=== PATIENT | female | born 1955 | race Caucasian/White ===

== ENCOUNTER 2017-01-30 11:02 | Outpatient (CLI) | payer OTHER ==
[2017-01-30 11:43] LABS: BASOPHILS # (AUTO) 0.1 K/uL (0-0.2); BASOPHILS % (AUTO) 0.9 % (0.0-3.0); EOSINOPHILS # (AUTO) 0.2 K/ul (0.0-0.7); EOSINOPHILS % (AUTO) 2.6 % (0.0-7.0); HEMATOCRIT 44.9 % (37.0-47.0); HEMOGLOBIN 14.3 g/dl (12.0-16.0); IMMATURE GRANULOCYTE % (AUTO) 0.3 % (0.0-5.0); LYMPHOCYTES # (AUTO) 2.1 K/uL (0.60-3.4); LYMPHOCYTES % (AUTO) 29.7 (10.0-50.0); MEAN CORPUSCULAR HGB CONC 31.8 (31.8-35.4); MEAN CORPUSCULAR VOLUME 84.7 fl (81.0-99.0); MONOCYTES # (AUTO) 0.4 K/uL (0.4-2.0); MONOCYTES % (AUTO) 5.8 (0-10); NEUTROPHILS # (AUTO) 4.2 K/ul (2.0-6.9); NEUTROPHILS % (AUTO) 60.7; PLATELET COUNT 291 10^3/uL (140-440); WHITE BLOOD COUNT 6.93 K/ul (4.6-10.2)
[2017-01-30 12:22] LABS: ALBUMIN 4.2 g/dL (3.4-5.0); ALBUMIN/GLOBULIN RATIO 1.2; ANION GAP 11.6; BILIRUBIN,TOTAL 0.49 mg/dL (0.00-1.20); BUN/CREATININE RATIO 22.34; CALCIUM 9.6 mg/dL (8.2-10.2); CREATININE 0.94 mg/dL (0.60-1.30); POTASSIUM 4.6 mmol/L (3.5-5.10); TOTAL PROTEIN 7.7 g/dL (5.8-8.1)
[2017-02-04 17:21] LABS: IGG P18 AB Absent (.); IGG P23 AB Absent (.); IGG P28 AB Absent (.); IGG P30 AB Absent (.); IGG P39 AB Absent (.); IGG P41 AB Present (.); IGG P45 AB Absent (.); IGG P58 AB Absent (.); IGG P66 AB Absent (.); IGG P93 AB Absent (.); IGM P39 AB Absent (.); IGM P41 AB Present (.)
[2017-02-05 07:39] LABS: LYME IGG WB INTERP Negative (.); LYME IGM WB INTERP Positive (.)
== END 2017-01-30 11:03 | disposition home or self-care (01) ==
LOC: LAB 11:02
PROVIDERS: ATTEND Internal Medicine
DX: R53.83 Other fatigue (principal); R52 Pain, unspecified; Z82.49 Family history of ischemic heart disease and other diseases of the circulatory system
CPT/HCPCS: 36415; 80053; 80061; 82607; 83036; 84439; 84443; 85025; 86617; 86757; 87798

== ENCOUNTER 2017-02-25 06:20 | Outpatient (CLI) ==
--- NOTE | 2017-02-26 09:28 | ECHO2D ---
Date of Exam: 02/25/17 Ordering Physician: ZARI GARSIA Reason for Echo: CHEST PAIN, PALPITATIONS M-Mode Normal Adult Results LV Dimensions Normal Adult Results AoV Opening excursions >1.6 >1.6 LVEDD-base- 3.5-5.8 3.5 Ao root dimensions 2.0-3.7 4.1 LVESD-base- 3.1-4.6 L. Atrium dimensions 1.9-3.8 3.0 Post. Wall thickness 0.8-1.1 0.9 IV septum (thickness) 0.7-1.2 0.9 Post. Wall excursion 0.72-1.3 NORMAL Septal motion NORMAL Systolic motion R. Ventricular cavity 1.5-2.0 NORMAL LVEF 60% 70% Paradoxical septal wall motion NORMAL 2-D :DILATED AORTIC ROOT/MITRAL VALVE PROLAPSE NOTED WITH LEFT PARASTERNAL LONG AXIS AND APICAL FOUR CHAMBER VIEW, NO EFFUSION, NO THROMBUS, NORMAL LEFT VENTRICLE AND LEFT ATRIAL SIZE M-MODE: MV: MITRAL VALVE PROLAPSE, LATE SYSTOLIC AV: NORMAL TV: NORMAL PV: CHAMBER SIZE: DILATED AORTIC ROOT WALL MOTION: NORMAL PERICARDIUM: NORMAL INTERPRETATION: 1. MILDLY DILATED AORTIC ROOT 2. 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 NORMAL LEFT VENTRICULAR CONTRACTILITY 4. NORMAL LEFT VENTRICLE SIZE MTDD
== END 2017-02-25 06:21 | disposition home or self-care (01) ==
LOC: CAR 06:20
PROVIDERS: ATTEND Internal Medicine
DX: R07.9 Chest pain, unspecified (principal); R00.2 Palpitations

== ENCOUNTER 2017-02-27 06:04 | Outpatient (CLI) ==
--- NOTE | 2017-02-27 09:57 | ECHOSTRESS ---
Date of Exam: 02/27/17 Ordering Physician: ZARI GARSIA Reason for Echo: CHEST PAIN, PALPITATIONS, STRESS TEST--NO ISCHEMIA M-Mode Normal Adult Results LV Dimensions Normal Adult Results AoV Opening excursions >1.6 LVEDD-base- 3.5-5.8 Ao root dimensions 2.0-3.7 LVESD-base- 3.1-4.6 L. Atrium dimensions 1.9-3.8 Post. Wall thickness 0.8-1.1 IV septum (thickness) 0.7-1.2 Post. Wall excursion 0.72-1.3 Septal motion Systolic motion R. Ventricular cavity 1.5-2.0 LVEF 60% Paradoxical septal wall motion 2-D: NORMAL LEFT VENTRICULAR CONTRACTILITY--RESTING AND POST EXERCISE M-MODE: MV: AV: TV: PV: CHAMBER SIZE: WALL MOTION: NORMAL LEFT VENTRICULAR CONTRACTILITY--RESTING AND POST EXERCISE PERICARDIUM: INTERPRETATION: 1. NORMAL LEFT VENTRICULAR CONTRACTILITY--RESTING AND POST EXERCISE MTDD
--- NOTE | 2017-02-27 10:03 | STRESSECHO ---
Date of Test: 02/27/17 Reason for Exam: CHEST PAIN, PALPITATIONS Ordering Physician: ZARI GARSIA Current Medications: SINGULAIR Physical Findings: S1, S2, NO S3 Resting EKG: SINUS RHYTHM/NO ACUTE CHANGES Target Heart Rate: 158/134 STAGE MPH/GRADE HEART RATE BPM BLOOD PRESSURE mmhg RHYTHM S-T SEGMENT +/- UP DOWN SYMPTOMS,COMMENTS At Rest 73 140/82 SR X NONE 1 1.7/10% 100 142/78 SR X NONE 2 2.5/12% 121 150/80 SR X NONE 3 3.4/14% 4 4.2/16% 5 5.0/18% Immediately after 151 SR X FATIGUE Durations of Exercise: 7:07 Maximum Heart Rate Reached: 151 Reason for Termination: FATIGUE 3 MINUTES POST EXERCISE: HR 80 BPM, BP 160/70 BPM, SR, +/- INTERPRETATION: 98% OXYGEN SATURATION WITH EXERCISE ON ROOM AIR METS 10.0 1. NO EVIDENCE OF ISCHEMIA BY ST-T WAVE 2 NO CHEST PAIN OR DISCOMFORT 3. BLOOD PRESSURE RESPONSE NORMAL 4. NO ARRHYTHMIAS NORMAL LEFT VENTRICULAR CONTRACTILITY--RESTING AND POST EXERCISE MTDD
== END 2017-02-27 06:05 | disposition home or self-care (01) ==
LOC: CAR 06:04
PROVIDERS: ATTEND Internal Medicine
DX: R07.9 Chest pain, unspecified (principal); R00.2 Palpitations

== ENCOUNTER 2018-02-13 11:00 | Outpatient (RCR) ==
--- NOTE | 2018-02-12 11:43 | RS.OPPTEV2 ---
Date of Note: 02/11/18 Visit #: 1 Date of Evaluation: 02/11/18 Payer Source: Insurance Date of Onset/Injury/Change in Status: 12/29/17 Surgery Performed?: No Treatment Diagnosis: pain in R knee History of Condition/Mechanism of Injury:: pt reports she fell down her basement steps on 12/29/17. 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 She states she is also having pain and feelings of instability in L knee as well as R. Treatment Side (optional): Right *Precautions: no restrictions per Kary with Dr. 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 Smoking Status: Never smoker Diagnostic Testing/Imaging:: MRI on 01/05/18: acute nondisplaced fx fibular head , nondisplaced fx of tibial plateau, chronic and degenerative complex tear through ant horn of lateral meniscus. Hx Home Medications: toprol XL, tramadol, medrol dose pack, multivitamin, vitamin D3, [place], [place] 3 Patient's Goals: decrease pain and increased stability in knee to be able to return to work Pain Assessment - Pain Description Pain Location: R knee, and L knee Pain Description: Aching Current Pain Intensity: 0 at rest, aches with weight bearing and when lying supine after being up. Worst Pain Intensity: 8-10 Functional Outcome Measure LE Functional Scale: 40 (50% disability) - G Codes & Severity Modifier G Codes & Modifier: n/a Source of G Code score: n/a Observation - Observation Posture: Forward Head, Rounded Shoulders, Increased Thoracic Kyphosis, Decreased Lumbar Lordosis Handedness: Right Girth Measurement Lower: R knee 40 cm. L knee 38 cm Gait - Gait Pattern General Gait Pattern Observation: Antalgic Gait Gait Comments: pt amb with antalgic gait with decreased knee flex on R, with decreased heel strike/toe off on RLE. General Range of Motion: BUE WFL's. BLE hip flex WFL's, ankle DF/PF WFL's Muscle Strength: BUE 5/5. RLE hip flex 4-/5, ankle DF/PF 4+/5. LLE hip flex 4+ /5, ankle DF/PF 5/5 - Left Knee ROM Left Knee Extension: -6 Left Knee Flexion: 117 (AROM with pain) Knee ROM Limitations: Soft Tissue Tightness, Muscle Weakness, Pain - Right Knee ROM Right Knee Extension: -3 Right Knee Flexion: 110 (AROM with pain) Knee ROM Limitations: Soft Tissue Tightness, Muscle Weakness, Pain - Left Knee Strength Left Knee Extension: 3 Fair Left Knee Flexion: 4- Good- - Right Knee Strength Right Knee Extension: 3+ Fair+ Right Knee Flexion: 3 Fair - Special Tests Knee Anterior Drawer Test: Negative Left, Negative Right Knee Posterior Drawer Test: Negative Left, Negative Right Knee Valgus Stress Test: Negative Left, Positive Right Knee Varus Stress Test: Negative Right, Positive Left Patella Apprehension Test: Negative Left, Negative Right Patella J-sign: Negative Left, Negative Right Palpation Palpation Findings: Tenderness, Muscle Guarding Comments:: tenderness noted in R knee at medial joint line with joint effusion noted Sensation - Sensation Right Upper Extremity: Intact/Normal Left Upper Extremity: Intact/Normal Right Lower Extremity: Impaired Left Lower Extremity: Impaired Comments: pt with n/t B feet due to previous issues. Balance - Sitting Balance Static Sitting Balance: Normal Dynamic Sitting Balance: Normal - Standing Balance Static Standing Balance: Good Dynamic Standing Balance: Fair - Comments Balance Assessment Comments: pt with decreased dyn stand balance due to decreased strength, and pain in R knee. Interventions - Exercise/Activities/Manual Therapy Exercises/Activities: pt performed BLE QS, QS with pillow squeeze, SAQ, SLR, LAQ x 5 reps with verbal cues for technique Manual Therapy: n/a HOME EXERCISE PROGRAM: pt given written HEP including: QS, QS with pillow squeeze, SAQ, SLR, LAQ - Charges Timed Code Treatment Minutes: 53 Total Treatment Time: 61 Procedures billed for this date of service:: eval med, ex EVALUATION COMPLEXITY LEVEL EVALUATION COMPLEXITY LEVEL: HISTORY: Medium (OA, RA, HTN), EXAM OF BODY SYSTEMS : Medium (ROM, strength, pain, balance, gait), CLINICAL PRESENTATION: Medium ( evolving), CLINICAL DECISION MAKING: Medium Assessment Assessment: pt presents with decreased strength, gait sequencing, balance, as well as pain in R knee as well as L knee. Feel pt would benefit from skilled PT for therex for LE strengthening, ROM as well as gait training to improve functional mobility Patient Education: Home Exercise Program, Education of Plan of Care Rehab Potential: Good Short Term Goals Goal #1: pt amb in dept without AD with improved heel strike/toe off gait pattern. Goal to be met by: 03/04/18 Goal #2: pt with improved ROM R knee ext 0, flex 112 Goal to be met by: 03/04/18 Goal #3: pt independent with initial HEP Goal to be met by: 03/04/18 Goal #4: Decreased R knee edema to equal to Lknee Goal to be met by: 03/04/18 Halfway Goals Goal #1: pt amb community distances with decreased pain and improved sequencing Goal to be met by: 03/25/18 Goal #2: pt with no reports of feeling instability in knee when amb Goal to be met by: 03/25/18 Goal #3: pt report ability to perform household tasks with less pain Goal to be met by: 03/25/18 Goal #4: pt independent with HEP to maintain gains after DC Goal to be met by: 03/25/18 Plan - Treatment to be Provided Procedures: Therapeutic Exercises, Therapeutic Activity, Gait Training, Manual Therapy, Patient Education Modalities: Electrical Stimulation, Cryotherapy, Hot Packs - Treatment Plan Frequency: 2-3 x week Duration: 6 weeks ORDER # VISITS AND/OR THROUGH DATE: 03/25/18 - Treatment Code (1) Right knee pain Code(s): M25.561 - PAIN IN RIGHT KNEE Qualifiers: Chronicity: chronic Qualified Code(s): M25.561 - Pain in right knee; G89.29 - Other chronic pain (2) Joint effusion of knee Qualifiers: Laterality: right Qualified Code(s): M25.461 - Effusion, right knee (3) Muscle weakness Code(s): M62.81 - MUSCLE WEAKNESS (GENERALIZED) (4) Difficulty walking Code(s): R26.2 - DIFFICULTY IN WALKING, NOT ELSEWHERE CLASSIFIED
--- NOTE | 2018-02-12 11:45 | RS.CSNOTE ---
PT Case Note Date of Note: 02/11/18 Title of document: Phone call from Note: Received call from Kary with Dr. Grant and she reports pt has no weight bearing or any exercise restrictions at this time.
--- NOTE | 2018-02-13 15:51 | RS.OPPTDN ---
Subjective Date of Note: 02/13/18 Visit #: 2 Date of Evaluation: 02/11/18 Payer Source: Insurance Treatment Diagnosis: pain in R knee Current Subjective/complaints:: Patient reports discomfort with ambulation and with end range flexion with bilateral knees. Reports right knee feels swollen and is painful along the medial joint. Left knee also bothers her with discomfort at one point at the medial joint line. *Precautions: no restrictions per Kary with Dr. Grant Pain Assessment - Pain Description Pain Location: Both knees with right worse than left Current Pain Intensity: mod - Treatment Modality: Electrical Stim Unattended Parameters/Method Applied: [id number] HVGC to 135p.v. with 4 large pads cross current to the right knee joint with CP following EX. Patient Position: Supine - Heat/Cryotherapy Treatment: Cryotherapy (with Estim ) Interventions - Exercise/Activities/Manual Therapy Exercises/Activities: Bilateral QS, SAQ, SLR, and HS. All 2s/10reps. Yellow theraband for ankle df, ham curl, bilaterally 3s/10reps. Isometric hip add and ankle inversion with ball, multiple reps. Passive knee flexion and hamstring stretching. Reviewed HEP and safety precautions. Total minutes of Exercise: 28mins Manual Therapy: n/a HOME EXERCISE PROGRAM: pt given written HEP including: QS, QS with pillow squeeze, SAQ, SLR, LAQ. Yellow theraband for resistive ankle df. Isometric ankle df. - Charges Timed Code Treatment Minutes: 28mins Total Treatment Time: 50mins Procedures billed for this date of service:: EX2, CP, Estim unattended Assessment: Patient tolerates progression of exercise. Will assess response to modalities next session. She will need to continue ice to reduce swelling. Patient Education: Education of diagnosis, Body/Joint mechanics, Home Exercise Program, Home Safety Patient demonstrates compliance with HEP?: Yes Short Term Goals Goal #1: pt amb in dept without AD with improved heel strike/toe off gait pattern. Goal to be met by: 03/04/18 Goal #2: pt with improved ROM R knee ext 0, flex 112 Goal to be met by: 03/04/18 Progress towards Goal:: Progressing Goal #3: pt independent with initial HEP Goal to be met by: 03/04/18 Progress towards Goal:: Progressing Goal #4: Decreased R knee edema to equal to Lknee Goal to be met by: 03/04/18 Pipe Tester Goals Goal #1: pt amb community distances with decreased pain and improved sequencing Goal to be met by: 03/25/18 Goal #2: pt with no reports of feeling instability in knee when amb Goal to be met by: 03/25/18 Goal #3: pt report ability to perform household tasks with less pain Goal to be met by: 03/25/18 Goal #4: pt independent with HEP to maintain gains after DC Goal to be met by: 03/25/18 Plan PLAN OF CARE EXPIRES ON:: 03/25/18 ORDER # VISITS AND/OR THROUGH DATE: 03/25/18 PLAN: Continue modalities to reduce pain and swelling of the right knee joint, and therex to increase strength and stability of bilateral LE's.
== END 2018-02-14 23:59 ==
PROVIDERS: ATTEND Orthopaedic Surgery
DX: M25.561 Pain in right knee (principal); M25.461 Effusion, right knee; M62.81 Muscle weakness (generalized); R26.2 Difficulty in walking, not elsewhere classified

== ENCOUNTER 2018-02-20 17:24 | Emergency (ER) | payer OTHER ==
[2018-02-20 17:33] VITALS: BP 146/85; TEMP 97.7; BMI 22.3
[2018-02-20] MEDS ORDERED: ZESTRIL PO STA (17:47)
[2018-02-20] MEDS ORDERED: ZOFRAN 4 MG/2 ML IM STA ×2 (18:09→18:16)
[2018-02-20] MEDS ORDERED: MORPHINE 2 MG/ML SYRINGE IM STA (18:10)
--- NOTE | 2018-02-20 18:13 | ED.PDOC ---
General ED Provider: Dr. 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) Nursing and Triage Documentation Reviewed and Agree: Yes (NURSING STAFF PRESENT AT ALL TIMES ) Does patient meet sepsis criteria?: Yes (HX/O LYMES DISEASE ) If yes, has appropriate treatment been initiated?: No System Inflammatory Response Syndrome: Not Applicable Sepsis Protocol: For patient's 13 years and over: Temp is 96.8 and below OR 101 and greater Pulse >90 BPM Resp >20/minute Acutely Altered Mental Status Are patient's symptoms suggestive of a new infection, such as: -Pneumonia -Skin, Soft Tissue -Endocarditis -UTI -Bone, Joint Infection -Implantable Device -Acute Abdominal Infection -Wound Infection -Meningitis -Blood Stream Catheter Infection -Unknown Cardiovascular Complaint Exam - Chest Pain Complaint/Exam Duration: TODAY HAS HAD HIGH BLOOD PRESSUE AND HEAD ACHE Symptoms Are: Still present Timing: Constant Length of Chest Pain Episodes: NO CHEST PAIN Associated Signs and Symptoms: Reports: Nausea. Denies: Diaphoresis, Vomiting, Fever, Palpitations, Cough, Hemoptysis, Back pain, Abdominal pain, Dizziness, Short of air, Calf pain, Calf swelling Related History: Reports: Similar episode, Other (ON METOPROLOL) Related Surgical History: Reports: None History of Healthcare-Acquired Pneumonia: Reports: No AMI/ACS Risk Factors: Reports: Hypertension TAD Risk Factors: Reports: Hypertension Pulmonary Embolism Risk Factors: Reports: None Prior Care for this Complaint: Yes (HYPERTENSION) Recent Stress Test: No Recent Echo/LV Function: No JVD Present: No Subcutaneous Emphysema Present: No Diminshed Breath Sounds: No Reproducible Chest Wall Pain: No Bilateral Pulses Present: Yes If Risk Factors for AMI/ACS Consider: EKG, Cardiac Enzymes Care and Dx Studies Discussed With: Family Phlebotomist Consulted: No Differential Diagnoses: Other (HYPERTENSION) Quality Indicators For Acute [place] or Cardiac Chest Pain: EKG in 10min. Review of Systems - Review Of Systems Constitutional: Reports: Malaise Eyes: Reports: No symptoms Ears, Nose, Mouth, Throat: Reports: No symptoms Respiratory: Reports: No symptoms Cardiac: Reports: No symptoms GI: Reports: Nausea : Reports: No symptoms Musculoskeletal: Reports: No symptoms Skin: Reports: No symptoms Neurological: Reports: Headache Endocrine: Reports: No symptoms Hematologic/Lymphatic: Reports: No symptoms All Other Systems: Reviewed and Negative Past Medical History - Past Medical History Previously Healthy: Yes Endocrine: Reports: None Cardiovascular: Reports: Hypertension, Other (AORTIC ANEURYSM) Respiratory: Reports: None Hematological: Reports: None Gastrointestinal: Reports: None Genitourinary: Reports: None Neuro/Psych: Reports: None Musculoskeletal: Reports: None Cancer: Reports: None Last Menstrual Period: unknown - Surgical History General Surgical History: Reports: None - Family History Family History: Reports: None - Social History Smoking Status: Never smoker Hx Substance Use: No Alcohol Screening: None Physical Exam - Physical Exam Appearance: Ill-appearing Ill-appearing: Moderate Pain Distress: Moderate Eyes: CATHI, EOMI, Conjunctiva clear ENT: Ears normal, Nose normal, Oropharynx normal Respiratory: Airway patent, Breath sounds clear, Breath sounds equal, Respirations nonlabored Cardiovascular: RRR, Pulses normal, No rub, No murmur GI/: Soft, Nontender, No masses, Bowel sounds normal, No Organomegaly Musculoskeletal: Normal strength, ROM intact, No edema, No calf tenderness Skin: Warm, Dry, Normal color Neurological: Sensation intact, Motor intact, Reflexes intact, Cranial nerves intact, Alert, Oriented Psychiatric: Affect appropriate, Mood appropriate Interpretation - [employer] Rate: Normal Rhythm: Sinus - EKG Interpretation Rate: Normal Rhythm: Sinus Ectopy: None [place]: NL ST Segment: Normal Re-Evaluation - Re-Evaluation Time of Re-Evaluation: 18:46 Physician Notification - Case Discussed Physician Notified: [email or web address] Time of Notification: 19:00 Critical Care Note - Critical Care Note Total Time (mins): 0 Course - Course Hematology/Chemistry: 02/20/18 17:54 02/20/18 17:54 Orders, Labs, Meds: Lab Review 02/20/18 02/20/18 02/20/18 17:54 17:54 17:54 WBC 10.41 H RBC 5.16 Hgb 14.2 Hct 43.6 MCV 84.5 MCH 27.5 MCHC 32.6 RDW Coeff of Maura 13.4 Plt Count 253 Immature Gran % (Auto) 0.2 Neut % (Auto) 76.1 Lymph % (Auto) 17.3 [place] % (Auto) 5.1 Eos % (Auto) 0.8 Baso % (Auto) 0.5 Immature Gran # (Auto) 0.0 Neut # (Auto) 7.9 H Lymph # (Auto) 1.8 [place] # (Auto) 0.5 Eos # (Auto) 0.1 Baso # (Auto) 0.1 ESR Sodium 138 Potassium 4.4 Chloride 105 Carbon Dioxide 22 L Anion Gap 15.4 BUN 25 H Creatinine 0.83 Estimated GFR (MDRD) 69.00 BUN/Creatinine Ratio 30.12 Glucose 108 Calcium 9.6 Total Bilirubin 0.7 AST 17 ALT 16 Alkaline Phosphatase 67 Total Creatine Kinase Troponin I Total Protein 7.0 Albumin 3.7 Globulin 3.3 Albumin/Globulin Ratio 1.12 E.chaffeensis DNA (PCR) Negative Spotted Fever Grp IgM Rickettsia IgG Ab Rickettsia IgG Ab IFA 02/20/18 02/20/18 02/20/18 17:54 17:54 17:54 WBC RBC Hgb Hct MCV MCH MCHC RDW Coeff of Maura Plt Count Immature Gran % (Auto) Neut % (Auto) Lymph % (Auto) [place] % (Auto) Eos % (Auto) Baso % (Auto) Immature Gran # (Auto) Neut # (Auto) Lymph # (Auto) [place] # (Auto) Eos # (Auto) Baso # (Auto) ESR Sodium Potassium Chloride Carbon Dioxide Anion Gap BUN Creatinine Estimated GFR (MDRD) BUN/Creatinine Ratio Glucose Calcium Total Bilirubin AST ALT Alkaline Phosphatase Total Creatine Kinase Troponin I 0.0150 Total Protein Albumin Globulin Albumin/Globulin Ratio E.chaffeensis DNA (PCR) Spotted Fever Grp IgM 1.06 H Rickettsia IgG Ab Negative Rickettsia IgG Ab IFA Not Reportable 02/20/18 02/20/18 17:54 18:30 WBC RBC Hgb Hct MCV MCH MCHC RDW Coeff of Maura Plt Count Immature Gran % (Auto) Neut % (Auto) Lymph % (Auto) [place] % (Auto) Eos % (Auto) Baso % (Auto) Immature Gran # (Auto) Neut # (Auto) Lymph # (Auto) [place] # (Auto) Eos # (Auto) Baso # (Auto) ESR 28 H Sodium Potassium Chloride Carbon Dioxide Anion Gap BUN Creatinine Estimated GFR (MDRD) BUN/Creatinine Ratio Glucose Calcium Total Bilirubin AST ALT Alkaline Phosphatase Total Creatine Kinase 35 Troponin I Total Protein Albumin Globulin Albumin/Globulin Ratio E.chaffeensis DNA (PCR) Spotted Fever Grp IgM Rickettsia IgG Ab Rickettsia IgG Ab IFA Orders Category Date Time Status EKG-(ED ONLY) Stat CARDIO 02/20/18 17:46 Completed CBC W/ AUTO DIFF Stat LAB 02/20/18 17:54 Completed COMPREHENSIVE METABOLIC PANEL Stat LAB 02/20/18 17:54 Completed CREATINE KINASE Stat LAB 02/20/18 17:54 Completed EHRLICHIA DNA, PCR Stat LAB 02/20/18 17:54 Completed ESR Stat LAB 02/20/18 18:30 Completed [facility] SPOTTED FEVER,IgG Routine LAB 02/20/18 17:54 Completed [facility] SPOTTED FEVER,IgM Routine LAB 02/20/18 17:54 Completed TROPONIN I Stat LAB 02/20/18 17:54 Completed Lisinopril [Zestril] MEDS 02/20/18 17:47 Discontinued 5 mg PO ONCE STA Meperidine HCl/Pf [Demerol 100 mg/ml Syringe] MEDS 02/20/18 18:50 Discontinued 50 mg IM ONCE STA Meperidine HCl/Pf [Demerol 50 mg/ml Vial] MEDS 02/20/18 18:59 Discontinued 50 mg .ROUTE .STK-MED ONE Morphine Sulfate [Morphine 2 mg/ml Syringe] MEDS 02/20/18 18:10 Discontinued 4 mg IM ONCE STA Ondansetron HCl/Pf [Zofran 4 mg/2 ml] MEDS 02/20/18 18:16 Discontinued 8 mg IM ONCE STA CT HEAD W/O CONTRAST Stat RADS 02/20/18 18:19 Completed Medications Discontinued Medications Generic Name Dose Route Start Last Admin Trade Name Marii PRN Reason Stop Dose Admin Lisinopril 5 mg 02/20/18 17:47 02/20/18 19:29 Zestril PO 02/20/18 17:48 Not Given ONCE STA Meperidine HCl 50 mg 02/20/18 18:50 02/20/18 19:09 Demerol 100 Mg/Ml Syringe IM 02/20/18 18:51 Not Given ONCE STA Morphine Sulfate 4 mg 02/20/18 18:10 02/20/18 18:38 Morphine 2 Mg/Ml Syringe IM 02/20/18 18:11 Not Given ONCE STA Ondansetron HCl 8 mg 02/20/18 18:16 02/20/18 18:27 Zofran 4 Mg/2 Ml IM 02/20/18 18:17 8 mg ONCE STA Administration Vital Signs: Temp Pulse Resp BP Pulse Ox 02/20/18 17:25 97.7 F 85 20 146/85 H 99 YG Risk Score YG Risk Score: Risk Score Odds of by 30D 0 0.1 (0.1-0.2) 1 0.3 (0.2-0.3) 2 0.4 (0.3-0.5) 3 0.7 (0.6-0.9) 4 1.2 (1.0-1.5) 5 2.2 (1.9-2.6) 6 3.0 (2.5-3.6) 7 4.8 (3.8-6.1) Departure - Departure Time of Disposition: 19:00 Disposition: HOME SELF-CARE Discharge Problem: Hypertension Qualifiers: Hypertension type: unspecified Qualified Code(s): I10 - Essential (primary) hypertension Headache Qualifiers: Headache type: unspecified Headache chronicity pattern: acute headache Instructions: Acute Headache (ED) Condition: Good Pt referred to PMD for follow-up: Yes IPMP verified?: No Additional Instructions: Please call your Family Physician as soon as possible to schedule a follow-up appointment. Allergies/Adverse Reactions: Allergies Cephalosporins Adverse Reaction (Verified 02/20/18 17:34) morphine Adverse Reaction (Verified 02/20/18 18:21) Sulfa (Sulfonamide Antibiotics) Adverse Reaction (Verified 02/20/18 17:34) Home Medications: Ambulatory Orders Metoprolol Succinate [Toprol Xl] 12.5 mg PO DAILY 02/20/18 Montelukast Sodium [Singulair] 10 mg PO DAILY 02/20/18 Sumatriptan Succinate [Imitrex] 25 mg PO DIRECTED PRN 02/20/18 Tramadol HCl [Ultram] 50 mg PO Q6HR PRN 02/20/18 Disposition Discussed With: Patient, Family
[2018-02-20] MEDS ORDERED: DEMEROL 50 MG/ML VIAL ONE (18:59)
--- NOTE | 2018-02-20 19:01 | CT ---
EXAM: CT BRAIN HISTORY: Head pain TECHNIQUE: CT brain without intravenous contrast. 5-mm axial sections with Reformations. COMPARISON: None FINDINGS: Brain is unremarkable without evidence of hemorrhage or large vessel distribution recent ischemic in farction. There is no suggestion of acute hydrocephalus or subdural fluid collection. No mass or ma ss effect. Cranium is within normal limits. Mastoid processes are aerated. The visualized paranasal sinuses a re clear. IMPRESSION: No acute intracranial process.
[2018-02-20] MEDS: DEMEROL 100 MG/ML SYRINGE IM STA ×2 (19:02→19:09)
== END 2018-02-20 20:30 | disposition home or self-care (01) ==
LOC: ED 17:24
DX: I10 Essential (primary) hypertension (principal); R51 Headache; Z79.899 Other long term (current) drug therapy
CPT/HCPCS: 36415; 80053; 82550; 84484; 85025; 85651; 86757; 87798; 93005; 93010; 96372; 99283

== ENCOUNTER 2018-02-26 09:00 | Outpatient (RCR) ==
--- NOTE | 2018-02-17 11:49 | RS.OPPTDN ---
Subjective Date of Note: 02/17/18 Visit #: 3 Date of Evaluation: 02/11/18 Payer Source: Insurance Treatment Diagnosis: pain in R knee Current Subjective/complaints:: Patient reports left knee pain is bothering her more than the right today. States reports what feels like an upward movement of the medial tibia when going down a step. *Precautions: no restrictions per Kary with Dr. Grant Pain Assessment - Pain Description Pain Location: Right knee and left knee Current Pain Intensity: right knee 1/10 and left knee 3/10 today - Treatment Modality: Electrical Stim Unattended Parameters/Method Applied: [id number] HVGC to 110p.v. with 4 large pads to the right knee joint with cold pack following exercise. Patient Position: Supine - Heat/Cryotherapy Treatment: Cryotherapy ([id number] to the right knee with Estim and to the left knee following EX. Patient in supine. ) Interventions - Exercise/Activities/Manual Therapy Exercises/Activities: Sitting LAQ. Bilateral QS, SLR, and HS, 4s/5reps. Increased to red theraband for ankle df, hip add, and hip abd, bilaterally 3s/ 10reps. Isometric hip add and ankle inversion with ball, multiple reps. Passive knee flexion and hamstring stretching. Reviewed HEP and safety precautions. Total minutes of Exercise: 25mins Manual Therapy: n/a HOME EXERCISE PROGRAM: pt given written HEP including: QS, QS with pillow squeeze, SAQ, SLR, LAQ. Yellow theraband for resistive ankle df. Isometric ankle df. - Charges Timed Code Treatment Minutes: 25mins Total Treatment Time: 50mins Procedures billed for this date of service:: EX2, CP, Estim unattended Assessment: Patient progressing with exercise. Patient Education: Education of diagnosis, Body/Joint mechanics, Home Exercise Program, Home Safety, Activity Modification Comments: Patient education of joint mechancis and safety. Patient demonstrates compliance with HEP?: Yes Short Term Goals Goal #1: pt amb in dept without AD with improved heel strike/toe off gait pattern. Goal to be met by: 03/04/18 Progress towards Goal:: Progressing Goal #2: pt with improved ROM R knee ext 0, flex 112 Goal to be met by: 03/04/18 Progress towards Goal:: Progressing Goal #3: pt independent with initial HEP Goal to be met by: 03/04/18 Progress towards Goal:: Met Goal #4: Decreased R knee edema to equal to Lknee Goal to be met by: 03/04/18 Progress towards Goal:: Progressing Snf Goals Goal #1: pt amb community distances with decreased pain and improved sequencing Goal to be met by: 03/25/18 Goal #2: pt with no reports of feeling instability in knee when amb Goal to be met by: 03/25/18 Goal #3: pt report ability to perform household tasks with less pain Goal to be met by: 03/25/18 Goal #4: pt independent with HEP to maintain gains after DC Goal to be met by: 03/25/18 Plan PLAN OF CARE EXPIRES ON:: 03/25/18 ORDER # VISITS AND/OR THROUGH DATE: 03/25/18 PLAN: Continue modalities and progressive exericse to reduce pain and increase strength and stability to reutrn patient to PLOF.
--- NOTE | 2018-02-19 11:03 | RS.OPPTDN ---
Subjective Date of Note: 02/19/18 Visit #: 4 Date of Evaluation: 02/11/18 Payer Source: Insurance Treatment Diagnosis: pain in R knee Current Subjective/complaints:: Patient reports treatment seems to have helped reduce some knee pain. She does report a flair-up of swelling and joint discomfort right knee with increased walking day before yesterday. States she realizes she will have to limit her activity level. *Precautions: no restrictions per Kary with Dr. Grant Pain Assessment - Pain Description Pain Location: Bilateral knees, right greater than left. Current Pain Intensity: mild - Treatment Modality: Electrical Stim Unattended Parameters/Method Applied: [id number] HVGC to 125p.v. 4 large pads cross current to the right knee with CP following exercise. Patient Position: Supine - Heat/Cryotherapy Treatment: Cryotherapy (with Estim to right knee and CP to left knee. patient in supine. ) Interventions - Exercise/Activities/Manual Therapy Exercises/Activities: Bilateral QS and HS, 4s/5reps. Increased to red theraband for ankle df, hip add, and hip abd, bilaterally 3s/10reps. Isometric hip add and ankle inversion with ball, multiple reps. SLR added 1 1/2#. SLR/VMO no weights. Green theraband for hip add and abd with knees extended. Passive knee flexion and hamstring stretching. All exercises performed. bilaterally. Reviewed HEP and safety precautions. Total minutes of Exercise: 24mins Manual Therapy: n/a HOME EXERCISE PROGRAM: pt given written HEP including: QS, QS with pillow squeeze, SAQ, SLR, LAQ. Yellow theraband for resistive ankle df. Isometric ankle df. - Objective Findings Observations,measurements,etc.: Right knee AA flexion 131 degrees and left AA flexion 137 degrees. Patient demos full extension bilaterally. - Charges Timed Code Treatment Minutes: 24mins Total Treatment Time: 44mins Procedures billed for this date of service:: EX2, CP, Estim unattended Assessment: Patient progressing with exercise and demos full ROM of bilateral knee joints. Patient Education: Home Exercise Program, Activity Modification Patient demonstrates compliance with HEP?: Yes Short Term Goals Goal #1: pt amb in dept without AD with improved heel strike/toe off gait pattern. Goal to be met by: 03/04/18 Progress towards Goal:: Progressing Goal #2: pt with improved ROM R knee ext 0, flex 112 Goal to be met by: 03/04/18 Progress towards Goal:: Met Comments:: Right knee to neutral and flexion to 131 degrees. Goal #3: pt independent with initial HEP Goal to be met by: 03/04/18 Progress towards Goal:: Met Goal #4: Decreased R knee edema to equal to Lknee Goal to be met by: 03/04/18 Progress towards Goal:: Progressing Sorority Mother Goals Goal #1: pt amb community distances with decreased pain and improved sequencing Goal to be met by: 03/25/18 Goal #2: pt with no reports of feeling instability in knee when amb Goal to be met by: 03/25/18 Goal #3: pt report ability to perform household tasks with less pain Goal to be met by: 03/25/18 Goal #4: pt independent with HEP to maintain gains after DC Goal to be met by: 03/25/18 Plan PLAN OF CARE EXPIRES ON:: 03/25/18 ORDER # VISITS AND/OR THROUGH DATE: 03/25/18 PLAN: Progress with strengthening exercise to increase bilateral knee joint stability and functional activity level.
--- NOTE | 2018-02-20 10:27 | RS.OPPTDN ---
Subjective Date of Note: 02/20/18 Visit #: 5 Date of Evaluation: 02/11/18 Payer Source: Insurance Treatment Diagnosis: pain in R knee Current Subjective/complaints:: pt reports she had increased soreness after therapy yesterday. *Precautions: no restrictions per Kary with Dr. Grant Pain Assessment - Pain Description Pain Location: B knees R worse than L Current Pain Intensity: 0 at rest, increases with ROM - Heat/Cryotherapy Treatment: Cryotherapy Comments:: B knees Interventions - Exercise/Activities/Manual Therapy Exercises/Activities: BLE QS 4 sets of 5 reps, HS , isometric hip add with ankle inversion 2 sets of 10, Ankle DF and hip abd/add with green t band 2 sets of 10 reps, SLR 2 sets of 10, SLR/VMO 1 set of 10. pt unable to tolerate 2nd set due to cramping in hip. Gentle passive flex, hamstring stretches. Total minutes of Exercise: 41 Manual Therapy: n/a HOME EXERCISE PROGRAM: pt given written HEP including: QS, QS with pillow squeeze, SAQ, SLR, LAQ. Yellow theraband for resistive ankle df. Isometric ankle df. - Objective Findings Observations,measurements,etc.: pt with decreased edema B knees - Charges Timed Code Treatment Minutes: 41 Total Treatment Time: 62 Procedures billed for this date of service:: exercise 3, cold pack Assessment: pt progressing with ROM, decreased edema as well as decreased pain. pt is progressing toward goals. pt has met STG 1,2,3. Patient Education: Home Exercise Program, Education of Plan of Care Patient demonstrates compliance with HEP?: Yes Short Term Goals Goal #1: pt amb in dept without AD with improved heel strike/toe off gait pattern. Goal to be met by: 03/04/18 Progress towards Goal:: Met Goal #2: pt with improved ROM R knee ext 0, flex 112 Goal to be met by: 03/04/18 Progress towards Goal:: Met Goal #3: pt independent with initial HEP Goal to be met by: 03/04/18 Progress towards Goal:: Met Goal #4: Decreased R knee edema to equal to Lknee Goal to be met by: 03/04/18 Progress towards Goal:: Progressing Senior Living Goals Goal #1: pt amb community distances with decreased pain and improved sequencing Goal to be met by: 03/25/18 Progress towards goal: Progressing Goal #2: pt with no reports of feeling instability in knee when amb Goal to be met by: 03/25/18 Progress towards goal: Progressing Goal #3: pt report ability to perform household tasks with less pain Goal to be met by: 03/25/18 Progress towards goal: Progressing Goal #4: pt independent with HEP to maintain gains after DC Goal to be met by: 03/25/18 Progress towards goal: Progressing Plan PLAN OF CARE EXPIRES ON:: 03/25/18 ORDER # VISITS AND/OR THROUGH DATE: 03/25/18 PLAN: Continue with progressive ex and modalities.
--- NOTE | 2018-02-24 11:26 | RS.OPPTDN ---
Subjective Date of Note: 02/24/18 Visit #: 6 Date of Evaluation: 02/11/18 Payer Source: Insurance Treatment Diagnosis: pain in R knee Current Subjective/complaints:: Reports right knee seems to be at a slow point in progress. States right knee joint feels unstable with steps/stairs. States swelling has decreased but pain and tightness continues to increase at night and limits her rest. *Precautions: no restrictions per Kary with Dr. Grant Pain Assessment - Pain Description Pain Location: Right knee and left knee Pain Description: Throbbing, Aching Current Pain Intensity: right knee mod with end range flexion Worst Pain Intensity: mod to high at night when trying to rest at night Other Comments regarding Pain:: Right knee continues to feel unstable and ache at night when going to bed - Treatment Modality: Electrical Stim Unattended Parameters/Method Applied: [id number] to the right knee joint with 4 pads cross current at 130p.v. with CP following exercise. Patient Position: Supine - Heat/Cryotherapy Treatment: Cryotherapy (to right knee with Estim and to left knee following exercise ) Interventions - Exercise/Activities/Manual Therapy Exercises/Activities: In sitting, green theraband for ham curls, 2s/10reps each. Quad sets, ham sets, isometric hip add and isometric ankle inversion with ball, all 2s/10reps. Ankle DF red theraband 2s/10reps. Red theraband for hip abd and add with red t band increased to 3s/10reps. Added 1# to SLR and 1# to SLR/VMO increased to 3s/10reps each. Gentle passive flex, hamstring stretches. All exercises performed bilaterally. Total minutes of Exercise: 26mins Manual Therapy: n/a HOME EXERCISE PROGRAM: pt given written HEP including: QS, QS with pillow squeeze, SAQ, SLR, LAQ. Yellow theraband for resistive ankle df. Isometric ankle df. - Objective Findings Observations,measurements,etc.: Full AAROM of bilateral knees with mild discomfort at end range flexion. - Charges Timed Code Treatment Minutes: 26mins Total Treatment Time: 46mins Procedures billed for this date of service:: EX2, CP, Estim unattended Assessment: Patient has seen progress with ROM and some pain reduction with light activity. She continues to have pain at night as well as reported instability of the right knee joint. Patient will need to continue strengthening exercise and has been advised to call physicians office to check on moving up her follow-up appointment. Patient Education: Home Exercise Program, Home Safety, Activity Modification Patient demonstrates compliance with HEP?: Yes Short Term Goals Goal #1: pt amb in dept without AD with improved heel strike/toe off gait pattern. Goal to be met by: 03/04/18 Progress towards Goal:: Met Goal #2: pt with improved ROM R knee ext 0, flex 112 Goal to be met by: 03/04/18 Progress towards Goal:: Met Goal #3: pt independent with initial HEP Goal to be met by: 03/04/18 Progress towards Goal:: Met Goal #4: Decreased R knee edema to equal to Lknee Goal to be met by: 03/04/18 Progress towards Goal:: Progressing Physician Specialist Goals Goal #1: pt amb community distances with decreased pain and improved sequencing Goal to be met by: 03/25/18 Progress towards goal: Progressing Goal #2: pt with no reports of feeling instability in knee when amb Goal to be met by: 03/25/18 Progress towards goal: Progressing Goal #3: pt report ability to perform household tasks with less pain Goal to be met by: 03/25/18 Progress towards goal: Progressing Goal #4: pt independent with HEP to maintain gains after DC Goal to be met by: 03/25/18 Progress towards goal: Partially Met Plan PLAN OF CARE EXPIRES ON:: 03/25/18 ORDER # VISITS AND/OR THROUGH DATE: 03/25/18 PLAN: Continue to see patient to work on exercise to improve stability of bilateral knees with focus on right.
--- NOTE | 2018-02-26 11:42 | RS.OPPTDN ---
Subjective Date of Note: 02/26/18 Visit #: 7 Date of Evaluation: 02/11/18 Payer Source: Insurance Treatment Diagnosis: pain in R knee Current Subjective/complaints:: Patient reports she has seen improvement but feels she is at a stand-still in progress. Reports increase in ROM and strength of the bilateral knees and pain level is not as high. She continues to have swelling in the right knee joint that has only reduced slightly. *Precautions: no restrictions per Kary with Dr. Grant Pain Assessment - Pain Description Pain Location: Right knee, left knee Pain Description: Aching Current Pain Intensity: 1-2/10 right knee, mild left knee Worst Pain Intensity: 5/10 right knee at night Other Comments regarding Pain:: Mild discomfort at the right medial knee joint with each step. States it feels like a "ping", and intensity increases as the day progresses. Interventions - Exercise/Activities/Manual Therapy Exercises/Activities: Quad sets, ham sets, isometric hip add and isometric ankle inversion with ball, all 2s/10reps. Ankle DF increased to green theraband 2s/10reps. Red theraband for hip abd and add with red tband 3s/10reps. Increased to 1 1/2# to SLR and 1 1/2# to SLR/VMO 2s/10reps each. Green theraband for hip add and abd in hook-lying, 2s/10reps each. In sitting, green theraband for ham curl 3s/10reps each. All exercises performed bilaterally. Total minutes of Exercise: 40mins Manual Therapy: n/a HOME EXERCISE PROGRAM: pt given written HEP including: QS, QS with pillow squeeze, SAQ, SLR, LAQ. Yellow theraband for resistive ankle df. Isometric ankle df. - Objective Findings Observations,measurements,etc.: RIght knee flexion at 131-132 degrees with left being greater than normal at 137 degrees. Full extension with bilateral knees. - Charges Timed Code Treatment Minutes: 40mins Total Treatment Time: 42mins Procedures billed for this date of service:: EX3 Assessment: Patient has progressed but feels she is at a plateau in progress. Patient Education: Body/Joint mechanics, Home Exercise Program, Home Safety, Activity Modification Patient demonstrates compliance with HEP?: Yes Short Term Goals Goal #1: pt amb in dept without AD with improved heel strike/toe off gait pattern. Goal to be met by: 03/04/18 Progress towards Goal:: Met Goal #2: pt with improved ROM R knee ext 0, flex 112 Goal to be met by: 03/04/18 Progress towards Goal:: Met Goal #3: pt independent with initial HEP Goal to be met by: 03/04/18 Progress towards Goal:: Met Goal #4: Decreased R knee edema to equal to Lknee Goal to be met by: 03/04/18 Progress towards Goal:: Progressing Comments:: Slight progress Fpc Goals Goal #1: pt amb community distances with decreased pain and improved sequencing Goal to be met by: 03/25/18 Progress towards goal: Progressing Goal #2: pt with no reports of feeling instability in knee when amb Goal to be met by: 03/25/18 Progress towards goal: No Change Goal #3: pt report ability to perform household tasks with less pain Goal to be met by: 03/25/18 Progress towards goal: Progressing Goal #4: pt independent with HEP to maintain gains after DC Goal to be met by: 03/25/18 Progress towards goal: Partially Met Plan PLAN OF CARE EXPIRES ON:: 03/25/18 ORDER # VISITS AND/OR THROUGH DATE: 03/25/18 PLAN: Hold treatment at this time as patient will see physician for a follow-up next Friday. Following assessment, patient may continue therapy if indicated.
--- NOTE | 2018-03-10 10:42 | RS.QUICKDC ---
Discharge from PT Date of Discharge: 03/10/18 Number of Visits: 7 Reason for Discharge: Patient completed 7 sessions and reported a decrease in pain and swelling in the right knee joint. Patient met 3 treatment goals and had full ROM of the right knee. She returned to her physician for a follow-up and has returned to work. Discharge at this time with patient to continue HEP.
== END 2018-03-17 23:59 ==
PROVIDERS: ATTEND Orthopaedic Surgery
DX: M25.561 Pain in right knee (principal); G89.29 Other chronic pain; M25.461 Effusion, right knee; M62.81 Muscle weakness (generalized); R26.2 Difficulty in walking, not elsewhere classified